=== PATIENT | female | born 1945 | race Caucasian/White ===

== ENCOUNTER 2016-09-11 08:57 | Day surgery (SDC) | payer MEDICARE, OTHER ==
[2016-09-11] VITALS (8 sets, daily range): BP systolic 154–198; BP diastolic 68–98; PULSE 72–92; RESP 18–20; TEMP 97.8–97.9; O2SAT 93–97
[~2016-09-11] VITALS: Ht 165.1 cm; Wt 83.2 kg
[~2016-09-11 08:57] MED LIST: AZIT250T43 PO; BETH25TA PO; COZA50TA PO; NEXI40CA PO; OS-CTAB3 PO; TOPR50TA PO
[2016-09-11] MEDS ORDERED: AZIT250T3 PO (09:45)
[2016-09-11] MEDS ORDERED: BETH25TA2 PO (09:46)
[2016-09-11] MEDS ORDERED: CALC500T43 PO (09:47)
[2016-09-11] MEDS ORDERED: NEXI40CA PO (09:47)
[2016-09-11] MEDS ORDERED: COZA50TA PO (09:48)
[2016-09-11] MEDS ORDERED: TOPR50TA PO (09:48)
[2016-09-11] MEDS ORDERED: META28.34 PO (09:49)
[2016-09-11] MEDS ORDERED: SODIUM CHLOR 0.9% 1000 ML IV SCH (10:00)
[2016-09-11] MEDS ORDERED: LIDOCAINE 1%/EPINEPHrine 1:100,000 SOLN 20 ML VIAL ONE (10:40)
[2016-09-11] MEDS ORDERED: MIDAZOLAM HCL 5 MG/5 ML VIAL ONE (11:03)
[2016-09-11] MEDS ORDERED: fentaNYL CITRATE 250 MCG/5 ML AMP ONE (11:03)
--- NOTE | 2016-09-11 12:25 | RADRPT ---
EXAM DATE/TIME: 09/11/2016 11:16 [place] COMPARISON: No previous studies available for comparison. INDICATIONS : Elevated liver function tests. SEDATION TIME: 30 minutes BIOPSY SITE: liver MEDICATION(S): 1.) 2.5 mg midazolam (Versed) IV 2.) 125 mcg fentanyl (Sublimaze) FINISHING OPERATOR(s): Nenita Reynolds DEVICE(S): 1.) 18 gauge Temno core biopsy needle MEDICAL HISTORY : Hypertension. Gastroesophageal reflux disease. fatty liver, diverticulitis SURGICAL HISTORY : Hysterectomy. Appendectomy. Richard fundiplication ENCOUNTER: Initial ACUITY: 1 day PAIN SCORE: 0/10 LOCATION: Bilateral abdomen A total of one core specimen(s) were obtained and sent to the laboratory for pathologic evaluation. PROCEDURE: 1. CT guided liver biopsy. 2. Conscious sedation with continuous EKG and oximetry monitoring. 3. EKG and oximetry remained stable throughout the procedure. Prior to the procedure informed consent was obtained. Any appropriate prior imaging studies were rev iewed. Using automated exposure control and adjustment of the mA and/or kV according to patient size, radiat ion dose was kept as low as reasonably achievable to obtain optimal diagnostic quality images. The site was prepped in a sterile fashion. Full sterile technique was used, including cap, mask, jeff rile gloves and gown and a large sterile sheet. Hand hygiene and 2% chlorhexidine and/or betadine/al cohol prep was utilized per protocol for cutaneous antisepsis. The skin and subcutaneous tissues wer e infiltrated with local anesthetic solution. With CT guidance the previously identified target was localized. Biopsy was performed using the presc ribed needle as above. Adequate hemostasis was obtained with compression at the puncture site. Follow-up CT scan reveals no hemorrhage. The patient tolerated the procedure well and there were no complications. The patient was returned to the Radiology Outpatient Unit in stable condition. CONCLUSION: Uncomplicated CT-guided 18 gauge core biopsy of the right lobe of the liver. Donaldo Hathaway MD on September 11, 2016 at 12:23 Board Certified Radiologist. This report was verified electronically.
[2016-09-11] MEDS ORDERED: HYDROmorphone HCL 2 MG TAB PO PRN (14:00)
== END 2016-09-11 15:40 | disposition home or self-care (01) ==
LOC: HRAD 08:57 → HRIP 08:58 → HRAD 15:40
DX: K75.81 Nonalcoholic steatohepatitis (NASH) (principal); I10 Essential (primary) hypertension; K21.9 Gastro-esophageal reflux disease without esophagitis; Z90.49 Acquired absence of other specified parts of digestive tract; Z90.710 Acquired absence of both cervix and uterus
CPT/HCPCS: 47000; 77012; 88307; 88313; J2250; J3010; J7030

== ENCOUNTER 2017-04-08 17:33 | Emergency (ER) | payer MEDICARE, OTHER ==
[~2017-04-08] VITALS: Ht 165.1 cm; Wt 82.0 kg
[~2017-04-08 17:33] MED LIST changes: +AZIT250T3 PO; -AZIT250T43 PO; -BETH25TA PO; +BETH25TA2 PO; +CALC500T43 PO; +META28.34 PO; -OS-CTAB3 PO
[2017-04-08 17:35] VITALS: PULSE 75; RESP 16; TEMP 98.1; O2SAT 98
[2017-04-08 17:45] VITALS: BP 184/86
--- NOTE | 2017-04-08 17:53 | PD ---
HPI Chief Complaint: Laceration/Skin Injury Time Seen by Provider: 17:42 Travel History International Travel<30 days: No Contact w/Intl Traveler<30days: No Traveled to known affect area: No History of Present Illness HPI 72-year-old female presents the emergency department with laceration to the medial left first MIP joint along the medial aspect. It does not appear to go into the joint capsule or cause loss of function. Bleeding is controlled. Patient denies numbness or tingling. Last tetanus was 2012. Pain is minimal. Patient is concerned she may need stitches. Patient is allergic to excellent, and metoclopramide. PFSH Past Medical History Hx Anticoagulant Therapy: No Arthritis: Yes (fingers) Heart Rhythm Problems: No Cancer: No Cardiovascular Problems: Yes (HTN) High Cholesterol: No Chemotherapy: No Chest Pain: No Congestive Heart Failure: No Diabetes: No Diminished Hearing: No Endocrine: No GERD: Yes Genitourinary: No Hepatitis: No Hiatal Hernia: No Hypertension: Yes Immune Disorder: No Musculoskeletal: No Neurologic: No Psychiatric: No Reproductive: Yes (fibroids prior to hysterectomy) Respiratory: No Radiation Therapy: No Sickle Cell Disease: No Thyroid Disease: No Ulcer: Yes (diverticuli) ?: Not Past Surgical History Abdominal Surgery: Yes (chapin fundliplication) AICD: No Appendectomy: Yes Arteriovenous Shunt: No Cardiac Surgery: No Ear Surgery: No Endocrine Surgery: No Eye Surgery: No Genitourinary Surgery: No Gynecologic Surgery: Yes (hysterectomy) Hysterectomy: Yes Insulin Pump: No Joint Replacement: No Oral Surgery: No Pacemaker: No Thoracic Surgery: Yes (tonsills) Tonsillectomy: Yes Social History Alcohol Use: No Tobacco Use: No Substance Use: No Allergies-Medications (Allergen,Severity, Reaction): Coded Allergies: metoclopramide (Unverified Allergy, Unknown, DIARRHEA, 04/08/17) Uncoded Allergies: DEXILANT (Adverse Reaction, Severe, DIARRHEA, 10/26/10) Reported Meds & Prescriptions Reported Meds & Active Scripts Active Reported Atorvastatin (Atorvastatin Calcium) 10 Mg Tab 10 Mg PO HS Aciphex (Rabeprazole Sodium) 20 Mg Tab 20 Mg PO DAILY Metamucil Smooth Texture (Psyllium Hydrophilic Mucilloid) 28.3 % Pow 1 Scoop PO TID PRN 1 rounded TEASPOON in 8 oz of liquid at the first sign of irregularity. Toprol XL (Metoprolol Succinate) 50 Mg Tab 50 Mg PO DAILY Cozaar (Losartan Potassium) 50 Mg Tab 50 Mg PO DAILY Calcium/Vitamin D (Calcium Carbonate-Vitamin D) 500-200 Mg-Unit Tab 1 Tab PO DAILY Bethanechol 25 Mg Tab 25 Mg PO DAILY Azithromycin 250 Mg Tab 250 Mg PO DAILY Review of Systems Except as stated in HPI: all other systems reviewed are Neg General / Constitutional: No: Fever Eyes: No: Visual changes HENT: No: Headaches Cardiovascular: No: Chest Pain or Discomfort Respiratory: No: Shortness of Breath Gastrointestinal: No: Abdominal Pain Genitourinary: No: Dysuria Musculoskeletal: No: Pain Skin: No Rash Neurologic: No: Weakness Psychiatric: No: Depression Endocrine: No: Polydipsia Hematologic/Lymphatic: No: Easy Bruising Physical Exam Narrative GENERAL: Patient is in no acute distress SKIN: Warm and dry. Patient is a 3 cm linear laceration to the medial left MIP joint. HEAD: Atraumatic. Normocephalic. EYES: Pupils equal and round. No scleral icterus. No injection or drainage. ENT: No nasal bleeding or discharge. Mucous membranes pink and moist. Airway is patent. NECK: Trachea midline. Supple and nontender. CARDIOVASCULAR: Regular rate and rhythm. RESPIRATORY: No accessory muscle use. Clear to auscultation. Breath sounds equal bilaterally. MUSCULOSKELETAL: Extremities without clubbing, cyanosis, or edema. No obvious deformities. Range of motion of the left great toe is intact. NEUROLOGICAL: Awake and alert. No obvious cranial nerve deficits. Motor grossly within normal limits. Five out of 5 muscle strength in the arms and legs. Normal speech. PSYCHIATRIC: Appropriate mood and affect; insight and judgment normal. Data Data Last Documented VS Vital Signs Date Time Temp Pulse Resp B/P (MAP) Pulse Ox O2 Delivery O2 Flow Rate FiO2 04/08/17 17:35 98.1 75 16 98 Orders Orders Tetanus/Diphtheria Tox Adult (Tetanus/Di (04/08/17 18:00) Lidocai-Epi 1%-1:100,000 Inj (Xylocaine- (04/08/17 18:00) Cephalexin (Keflex) (04/08/17 18:00) MDM Medical Decision Making Medical Screen Exam Complete: Yes Emergency Medical Condition: Yes Medical Record Reviewed: Yes Differential Diagnosis Laceration. Accidental wound. Need for tetanus. Need for sutures. Narrative Course Patient is given tetanus 0.5 mg IM. Wound is closed after cleaning. Dressing is to remain in place for 24 hours, and then cleaned and covered until sutures removed Sutures should remain in place for 10 days. Patient is placed on Keflex 500 mg 3 times a day 7 days. Procedures Procedure Narrative LACERATION LOCATION: Left medial first MIP joint LENGTH: 3 cm NUMBER OF STITCHES/BRIAN: 5 simple interrupted REPAIR: The area of the laceration was prepped with Betadine and sterilely draped. The laceration was infiltrated with 2.[address] 1% lidocaine with epi. The wound was copiously irrigated and explored without evidence of foreign body , tendon injury or neurovascular injury. The wound was closed using 5-0 Prolene. This was a single layer repair. A sterile dressing was applied. The patient was advised to keep the dressing clean and dry. Patient tolerated the procedure well. Diagnosis Primary Impression: Superficial laceration of left foot Qualified Codes: S91.312A - Laceration without foreign body, left foot, initial encounter Referrals: Michele Patton MD PhD Patient Instructions: Care For Your Stitches (ED), General Instructions Additional Instructions: Patient is given tetanus 0.5 mg IM. Wound is closed after cleaning. Dressing is to remain in place for 24 hours, and then cleaned and covered until sutures removed Sutures should remain in place for 10 days. Patient is placed on Keflex 500 mg 3 times a day 7 days. Med/Other Pt SpecificInfo: Prescription(s) given Disposition: 01 DISCHARGE HOME Condition: Stable Scotty Mitchell Apr 08, 2017 17:53
[2017-04-08] MEDS ORDERED: ACIP20TA19 PO (17:57)
[2017-04-08] MEDS ORDERED: ATOR10TA15 PO (17:57)
[2017-04-08] MEDS ORDERED: CEPHALEXIN MONOHYDRATE 500 MG CAP PO ONE (18:00)
[2017-04-08] MEDS ORDERED: LIDOCAINE 1%/EPINEPHrine 1:100,000 SOLN 20 ML VIAL INFIL ONE (18:00)
[2017-04-08] MEDS ORDERED: TETANUS/DIPHTHERIA TOXOID ADULT 0.5 ML VIAL IM ONE (18:00)
[2017-04-08] MEDS ORDERED: CEPH-460 PO (18:25)
== END 2017-04-08 18:38 | disposition home or self-care (01) ==
LOC: PHEFT 17:33
DX: S91.312A Laceration without foreign body, left foot, initial encounter (principal); I10 Essential (primary) hypertension; X58.XXXA Exposure to other specified factors, initial encounter; Z23 Encounter for immunization
CPT/HCPCS: 12002; 90471; 90714; 99283; L3260; 12001